=== PATIENT | male | born 1975 | race African-American/Black ===

== ENCOUNTER 2024-08-31 12:19 | Emergency (ER) | payer MEDICAID, OTHER ==
[~2024-08-31] VITALS: Ht 167.6 cm; Wt 89.0 kg
[~2024-08-31 12:19] MED LIST: CYCL10TA21 MT; KETO10TA2 MT; LIDO700A30 TP
[2024-08-31 12:25] VITALS: O2SAT 100
[2024-08-31 12:57] VITALS: BP 124/73; PULSE 59; RESP 18; TEMP 36.7; O2SAT 100
== END 2024-08-31 16:47 | disposition left against medical advice (07) ==
LOC: ER 12:19
DX: M79.602 Pain in left arm (principal); Z53.21 Procedure and treatment not carried out due to patient leaving prior to being seen by health care provider